=== PATIENT | male | born 1945 | race Caucasian/White ===

== ENCOUNTER 2022-05-18 10:45 | Outpatient (RCR) | payer MEDICARE, SELFPAY ==
--- NOTE | 2022-05-11 11:42 | PT.OPEX ---
PT [facility] Outpatient Eval PT [facility] Outpatient Eval Start: 05/11/22 09:38 Freq: Status: Active Protocol: Document 05/11/22 10:45 MBB (Rec: 05/11/22 11:41 MBB [id number]) E-signed By Susanne Santos DPT Physical Therapy Outpatient Evaluation Insurance Information Recert Due Date 08/03/22 Insurance Name Medicare B Medical Diagnosis trapezius muscle strain Treating Diagnosis cervicogenic headache; upper cervical joint irritation; impaired posture Referring MD [place] Subjective Subjective Bilateral neck pain, shoulder pain and headaches for about 2 weeks. Pain has been severe. Extra strength Tylenol is keeping the headaches. Pulled some weeks yesterday and was in severe pain in shoulders last night. Neck is stiff noted when turning for driving . Wakes in the morning with headache. Heat and ice have helped. PMH: cardiac stents, [place] 2019; OA PLOF: able to do whatever he wants without any pain Pain Comments can be 10/10 Objective Range of Motion severely limited neck rotation and sidebend Palpation Tender suboccipitals. No tenderness trapezius. Upper cervical joint hypomobility and irritation Posture severely impaired thoracic kyphosis with forward head and shoulders; mobile as he's able to correct Assessment/Impression 77 yo with insideous onset of neck pain, shoulder pain and headache 2 weeks ago. Signs and symptoms suggest cervicogenic headache with upper cervical joint irritation and impaired posture contributing to continued tension and tightness. He will benefit from skilled PT to address joint and soft tissue mobility limitations, improve neck ROM , improve posture and resolve pain to allow him to return to prior level of function. Primary Functional Limitations sleep; ADLs; weeding; stacking wood Plan of Care Rehabilitation Potential Good Physical Therapy Goals By 08/03/22 patient will... 1) Report 100% resolution of headache allowing him to sleep without disruption. 2) Pull weeds and do other yardwork without shoulder and neck pain flaring. 3) Chop and stack wood without pain flare. Coordination/Communication With Referral Source Treatment Plan/Direct Interventions Joint Mobilization,Manual Therapy,Therapeutic Exercises Frequency/Duration 1 x per week for 6-8 weeks then prn for 4 weeks Patient Will Be Discharged From Therapy Completion of LTG(s),Skills Plateau,Independent w/HEP, Independently Progressing Certification Information Signature of provider indicates agreement with plan of care and medical necessity of physical therapy services. Initial Certification Date 05/11/22 Ending Certification Date 08/03/22 Providers NPI#:
== END 2022-06-02 14:12 | disposition home or self-care (01) ==
PROVIDERS: PCP Internal Medicine; Visit Provider Internal Medicine
DX: R51.9 Headache, unspecified (principal); M54.2 Cervicalgia; Z51.89 Encounter for other specified aftercare
CPT/HCPCS: 97110; 97140; 97161

== ENCOUNTER 2022-05-27 14:27 | Outpatient (CLI) | payer MEDICARE, SELFPAY ==
--- NOTE | 2022-05-27 14:30 | CRLHL7_ITS ---
For Patients: As a result of the Century Cures Act, medical imaging exams and procedure reports are released immediately into your electronic medical record. You may view this report before your referring provider. If you have questions, please contact your health care provider. Indication: Cervical radiculopathy Technique: Noncontrast sagittal T1, T2, STIR and axial GRE sequences are provided. Comparison: No prior studies available for comparison at this institution. Findings: Reverse S-shaped curvature of the cervical thoracic spine. Exaggerated cervical lordosis. Grade 1 anterolisthesis at C5-6, grade 1 retrolisthesis at C6-7. Mild vertebral height loss at C6 and C7, likely on a chronic-degenerative basis. No evidence of acute fracture. No suspicious bony edema. Bony ankylosis across the bilateral C3-4 facet joints. Included posterior fossa structures are unremarkable. Visualized spinal cord appears normal in course, caliber, and intrinsic signal. Regional soft tissues are unremarkable. C2-3: Facet arthropathy. Mild bilateral foraminal narrowing. No spinal canal stenosis. C3-4: Uncovertebral/facet arthropathy. No significant foraminal spinal canal stenosis. C4-5: Anterolisthesis, uncovertebral/facet arthropathy. Moderate-severe bilateral foraminal stenosis. Mild spinal canal narrowing. C5-6: Disc-osteophyte complex, uncovertebral/facet arthropathy. Mild right, moderate-severe left neural foraminal stenosis. Moderate spinal canal stenosis. C6-7: Disc-osteophyte complex, uncovertebral/facet arthropathy. Eubz-ve-rlfrlrer bilateral foraminal narrowing. Moderate spinal canal stenosis. C7-T1: No evidence of significant foraminal spinal canal stenosis. Impression: 1. No evidence of acute osseous abnormality. 2. Cervical spondylosis, with reverse S-shaped cervical thoracic scoliosis, and degenerative ankylosis of the bilateral C3-4 facet joints. 3. At C4-5, moderate-severe bilateral foraminal stenosis. 4. At C5-6, moderate spinal canal stenosis, and moderate-severe left foraminal stenosis. 5. At C6-7, moderate spinal canal stenosis, and mild-moderate bilateral foraminal narrowing. Dictated by Venus Mckeon MD @ 05/27/2022 4:34:57 PM (Electronically Signed)
== END 2022-05-27 14:28 | disposition home or self-care (01) ==
LOC: MRI 14:28
PROVIDERS: PCP Internal Medicine; Visit Provider Physician Assistant Surgical
DX: M54.10 Radiculopathy, site unspecified (principal); M47.812 Spondylosis without myelopathy or radiculopathy, cervical region; M48.02 Spinal stenosis, cervical region
CPT/HCPCS: 72141

== ENCOUNTER 2023-01-09 09:20 | Outpatient (CLI) | payer MEDICARE, SELFPAY | END 2023-01-09 09:21 | disposition home or self-care (01) | LOC: NFLDREF 01-10 10:07 | PROVIDERS: PCP Internal Medicine; Referring Provider Internal Medicine; Visit Provider Internal Medicine | DX: E78.5 Hyperlipidemia, unspecified (principal); I10 Essential (primary) hypertension; M10.9 Gout, unspecified; Z12.5 Encounter for screening for malignant neoplasm of prostate | CPT/HCPCS: 80053; 80061; 84153 ==

== ENCOUNTER 2023-05-17 13:45 | Outpatient (RCR) | payer MEDICARE, SELFPAY ==
--- NOTE | 2023-03-29 07:54 | PT.OPEX ---
PT [place] Outpatient Eval PT [facility] Outpatient Eval Start: 03/28/23 08:04 Freq: Status: Active Protocol: Document 03/28/23 08:05 KALLI (Rec: 03/28/23 16:30 KALLI [id number]) E-signed By Viola Sadler, PT Physical Therapy Outpatient Evaluation Insurance Information Recert Due Date 06/22/23 Insurance Name Other; See Comments Insurance Information/Comments Blue medicare PPO Medical Diagnosis Spondylosis without myelopathy or radiculopathy, cervical region Treating Diagnosis Neck pain, limited neck mobility, DNF and periscapular weakness, gross UE weakness B Referring Humberto Mclain Subjective Subjective Arlon reports to PT with chronic neck pain. 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 He had both arms outstretched and felt a pop. Unsure at the time if it was in his neck or shoulders. He has been limited with mobility in neck and shoulders as well as lifting ever since . He has since seen PCP and ortho specialist as well as PT in the past. Main thing that has helped alleviate his pain is taking prednisone. He has also had an epidural injection into his cervical spine 06/30 without much relief. He does also note pain in left shoulder following a slip and fall off a step in October. He was holding on to grab bar with his left arm and felt a pull in his left shoulder. Pain currently is throughout neck, down B shoulders and mid way through upper arm. This limits his ability to perform any yardwork, reaching overhead (L worse than R). Does also note some pain relief following laying on his back with his head off the mattress pad (found himself laying like this one night). Pain returned following sleeping in normal position. PMH: cardiac stents Imagin. No evidence of acute osseous abnormality. 2. Cervical spondylosis, with reverse S-shaped cervical thoracic scoliosis, and degenerative ankylosis of the bilateral C3-4 facet joints. 3. At C4-5, moderate-severe bilateral foraminal stenosis. 4. At C5-6, moderate spinal canal stenosis, and moderate- severe left foraminal stenosis. 5. At C6-7, moderate spinal canal stenosis, and mild- moderate bilateral foraminal narrowing. Pain Comments 10/10 worst Date of Last Physician Visit 03/14/23 Current Work Status Retired Precautions Therapy Limitations/Systems Review Not Limited Objective Other/Pertinent Objective Cervical ROM: -Flx: 45 -Ext: 34 with previously reported symptoms of lightheadedness -R Rot: 54 -L Rot: 57 -R Sidebend: 19 -L Sidebend: 19 DNF strength: unable to lift and hold Only able to tolerate supine elevated 30 deg Posture: significant kyphosis and forward head Shoulder AROM: R/L -flexion 154/87 -scaption 158/92 -ER0 70/70 -Functional IR L3/sacrum Shoulder MMT: R/L -flexion 4/3 -scaption 4/3 -ER0 4-/4- Distraction: + pain relief Hypomobility throughout cervical spine TTP/increased tone R>L UT/ levator Functional Test Performed & Score NDI: 14, 28% Assessment Assessment/Impression Patient is an 78 year old male presenting to physical therapy for evaluation and treatment of chronic neck pain . Patient presents with significant thoracic kyphosis, neck pain, limited neck mobility, DNF and periscapular weakness, gross UE weakness B (secondary to probable RC tear from recent fall in November 2022). These impairments are limiting the patients ability to reach overhead, sleep, lift household objects/perform yardwork, look over shoulders, look up at top shelf. Patient appears motivated to participate in PT and presents with good prognosis to improve mobility, strength, proprioception and return to functional activities with skilled physical therapy intervention. Primary Functional Limitations reach overhead, sleep, lift household objects/perform yardwork, look over shoulders, look up at top shelf Plan of Care Rehabilitation Potential Good Physical Therapy Goals In 6 weeks (05/09/23) Pt will report 25-50% improvement in neck symptoms Pt will demonstrate improved sitting posture without cueing in consecutive sessions in order to decrease strain on neck In 12 weeks (06/20/23) Pt will exhibit 10% improvement (or 5 points) in NDI Outcome measure to demonstrate functional improvement and progress towards goals. Pt will be able to return to yardwork including chopping and stacking wood with <2/10 pain Pt will report 50-75% improvement in neck symptoms in order to return to ADLs with minimal flare up Treatment Plan/Direct Interventions Ice/Cold/Vasopneumatic,Joint Mobilization,Manual Therapy, Neuromuscular Re-ed,Self-Care/ Home Management,Therapeutic Activities,Therapeutic Exercises,Traction (Mechanical ),Ultrasound Frequency/Duration 1x/wk for 6 weeks with additional 4 sessions prn based on progress Patient Will Be Discharged From Therapy Completion of LTG(s), Independent w/HEP, Independently Progressing Evaluation Billing Untimed Code Treatment Minutes 26 Complexity Low Certification Information Initial Certification Date 03/28/23 Ending Certification Date 06/22/23 Provider Signature Shows Agreement With POC & Medical Necessity Physician Signature & Date Requested Please Sign/Date Here Physician Comment/Change : Physician NPI Number #
== END 2023-08-07 15:30 | disposition home or self-care (01) ==
PROVIDERS: PCP Internal Medicine; Visit Provider Internal Medicine
DX: M47.812 Spondylosis without myelopathy or radiculopathy, cervical region (principal); M54.2 Cervicalgia; Z74.09 Other reduced mobility; R53.1 Weakness; Z51.89 Encounter for other specified aftercare
CPT/HCPCS: 97110; 97140; 97161

== ENCOUNTER 2023-06-29 09:20 | Outpatient (CLI) | payer MEDICARE, SELFPAY ==
--- OUTSIDE RECORDS SUMMARY | 2023-07-03 13:12 | XMS_ITS | Continuity of Care Document ---
Author Name Unknown Organization [facility] Address [address] [place] [address] Phone Care Team Providers Care Service Crew Supervisor Name Role Phone Frandy CADE, [place] Unavailable Unavailable Allergies, Adverse Reactions, Alerts Substance Reaction Status Criticality No Known Allergies Active No Inform ation Medications Medication Instructions Dosage Effective Dates (start - stop) Status Comments ATORVASTATIN CALCIUM (unknown strength) Not Available - Active ASPIRIN EC (unknown strength) Not Available - Active ISOSORBIDE MONONITRATE (unknown strength) Not Available - Active LISINOPRIL (unknown strength) Not Available - Active TURMERIC (unknown strength) Not Available - Active Procedures Procedure Date Office/Outpatient Visit,New, Mod 2022 Office/Outpatient Visit,[facility] 2022 Advance Directives Directive Yes / No Effective Date File Name No Information Encounters Encounter Description Practice Location Reason(s) For Visit Diagnoses Date Provider Providers Copied on Encounter Office/Outpat ient Visit,New, Mod [facility], [address], [place], [place], [id number], [place] tel:[phone] [facility] No Information Frandy Ramirez [facility], [address], [place], [place], [id number] , [place]. tel:[phone] Referring Provider: Scout Nicole [facility] Physician-D o Not Fax, [place], [address]. tel:[phone] Family History Family Member Type Diagnosis Age At Onset No Information Payers Payer name Insurance type Covered republican ID Authoriza tion(s) BCBS [id number] Medicare Martha DEMARCO [id number] 1 Social History Type Description Quantity Date Captured Comments Alcohol Use Details Unknown Caffeine Use Details Unknown Tobacco Use Status Ex-smoker Smoking Status Former smoker Non-Smoking Tobacco Use Details Chewing: No Details Available Chewing: No Details Available Sex Male Vital Signs Date / Time: Height Weight BMI Pulse Rate Blood Pressure Temperature Respiratory Rate Body Surface Area Head Circumference Head Circ. Percentile Wt./Sunil. Percentile BMI percentile Pulse Ox Inhaled Ox 10:07 AM 63.50 in 66.678 kg (147.00 lbs) 25.6 3 kg/m eter (2) Chief Complaint And Reason For Visit No Information Reason For Referral Reason For Referral No Information History Of Present Illness Encounter Date Complaint History Of Prese nt Illness No Information Functional Status Date Functional Assessmen t No Information Instructions Date Instruction Additional Infor mation No Information Assessments Type Assessment Date No Information Patient Care Teams Name Effective Dates (start - stop) Status Members No Information
== END 2023-06-29 09:21 | disposition home or self-care (01) ==
LOC: NFLDREF 07-03 13:10
PROVIDERS: PCP Internal Medicine Cardiovascular Disease; Referring Provider Internal Medicine; Visit Provider Internal Medicine
DX: I35.0 Nonrheumatic aortic (valve) stenosis (principal); I10 Essential (primary) hypertension; E78.5 Hyperlipidemia, unspecified; I25.10 Atherosclerotic heart disease of native coronary artery without angina pectoris; Z95.5 Presence of coronary angioplasty implant and graft; Z13.29 Encounter for screening for other suspected endocrine disorder
CPT/HCPCS: 84443

== ENCOUNTER 2023-07-07 09:52 | Outpatient (CLI) | payer MEDICARE, SELFPAY | END 2023-07-07 09:53 | disposition home or self-care (01) | LOC: RAD 09:52 | PROVIDERS: PCP Internal Medicine; Visit Provider Internal Medicine Cardiovascular Disease | DX: I25.10 Atherosclerotic heart disease of native coronary artery without angina pectoris (principal); I51.7 Cardiomegaly; I35.2 Nonrheumatic aortic (valve) stenosis with insufficiency | CPT/HCPCS: 93306 ==

== ENCOUNTER 2024-01-05 12:09 | Outpatient (CLI) | payer MEDICARE, SELFPAY | END 2024-01-05 12:10 | disposition home or self-care (01) | PROVIDERS: PCP Internal Medicine; Visit Provider Nurse Practitioner Family | DX: I10 Essential (primary) hypertension (principal); M10.9 Gout, unspecified; M25.562 Pain in left knee; M87.052 Idiopathic aseptic necrosis of left femur | CPT/HCPCS: 80053; 84550; 85651; 86140 ==

== ENCOUNTER 2024-01-12 09:01 | Outpatient (CLI) | payer MEDICARE, SELFPAY ==
--- NOTE | 2024-01-12 09:15 | MR_ITS ---
[address] [address] Phone:?[phone] Fax:?[phone] Referring Physician Information: Tila Johnson [address] [facility] [address] Phone:?[phone] Fax:?[phone] Patient:Austin Raines D.O.B:?1945 Sex:?Male Phone:?[phone] [facility] MRN:?[id number] Exam Date:?01/12/2024 EXAM: MRI of the LEFT KNEE, without contrast CLINICAL: Evaluate for medial femoral condyle avascular necrosis. COMPARISONS: X-rays dated 01/09/2024. TECHNICAL: Multiplanar multisequence MRI of the left knee was obtained. SEDATION: None. CONTRAST: None. FINDINGS: Ligaments: ACL: There is marked mucoid degeneration/sequelae of prior sprain injury involving the ACL. PCL: There is marked mucoid degeneration/sequelae of prior sprain injury involving the PCL. MCL: Irregularity of the proximal ligament consistent with sequelae of prior sprain injuries. There is marked synovitis adjacent to the proximal MCL. LCL: There is increased soft tissue edema about the LCL, without evidence of ligament disruption. Posterolateral corner: Popliteus tendon, biceps femoris, iliotibial band, and the popliteofibular ligament appear intact. There is increased soft tissue edema about the distal iliotibial band. Posteromedial corner: Semimembranosus, pes anserine tendons and posterior oblique ligament appear intact. Extensor mechanism: Patellar tendon: There is minimal partial interstitial tearing of the distal patellar tendon at the tibial tubercle attachment. There is also minimal partial tearing of the medial proximal patellar tendon on axial series 4 images 18-21. Quadriceps tendon: Intact, without tendinopathy. Retinacula: There is increased soft tissue edema about the medial and lateral patellar retinaculum, without evidence of disruption. Patellofemoral joint: Patella: Grade 2 chondral thinning is seen to involve the patella. Trochlea: Suspected ill-defined grade 2-3 chondral thinning involving the central and medial trochlea. Medial compartment: Medial meniscus: There is complex tearing throughout the posterior horn and posterior root, with complex tearing also seen throughout the body segment extending into the anterior horn as seen on sagittal series 6 image 7-15 and coronal series 8 image 12-21. Approximately 4 to 5 mm of medial extrusion of torn body segment meniscal tissue into the medial gutter. Medial cartilage: There is high-grade and full-thickness chondral loss seen to involve the medial femoral condyle and medial tibial plateau. Subchondral fracture is seen to involve the weightbearing medial femoral condyle with adjacent bone marrow edema and small adjacent cystic change. There is mild subchondral marrow edema/cystic change involving the peripheral medial tibial plateau. Lateral compartment: Lateral meniscus: There is complex tearing throughout the anterior horn extending into the anterior root and into the junction with the body segment. Ill-defined degenerative fraying/tearing involves the posterior root on sagittal series 6 images 17-19. Lateral cartilage: Small segment of high-grade chondral loss involves the junction of the posterior weightbearing and nonweightbearing lateral femoral condyle on sagittal series 6 image 21-22. High-grade chondral loss also involves the posterior lateral tibial plateau adjacent to the posterior horn lateral meniscus. Knee joint: Effusion: Moderate sized joint effusion is present with synovitis and with small intermixed intra-articular bodies also considered. Marked synovitis is seen along the peripheral and posterior aspects of the medial femoral condyle adjacent to the MCL measuring approximately 4 cm in AP dimension, 3 cm in transverse dimension and 4.5 cm in craniocaudal dimension. Marked synovitis is also seen along the periphery of the posterior medial tibial plateau. There is synovitis and possibly small bodies seen within the popliteal recess. Popliteal cyst: Moderate sized with internal synovitis/bodies noted. Bones: Subchondral fracture involves the weightbearing medial femoral condyle as above. Osseous cystic change is seen to involve the central aspect of the medial and lateral femoral condyles adjacent to the intercondylar notch. Osseous cystic changes are also seen to involve the central tibial plateau. There is scattered edema involving the subcutaneous soft tissues of the knee, nonspecific. IMPRESSION: 1. Subchondral fracture involving the weightbearing medial femoral condyle with adjacent marrow edema/small cystic changes. 2. Tearing of the medial and lateral menisci as above, with extrusion of torn body segment medial meniscal tissue into the medial gutter. 3. Marked mucoid degeneration versus sequelae of prior sprain injuries involving the ACL and PCL. Irregularity of the proximal MCL also suggesting sequelae of prior sprain injury. There is soft tissue edema about the LCL, which otherwise appears intact. 4. Tricompartmental chondromalacia/chondral loss as above. 5. Moderate-sized joint effusion with synovitis and with small intra-articular bodies also considered. There is marked synovitis along the peripheral and posterior medial tibial plateau including adjacent to the MCL with marked synovitis also noted along the peripheral posterior medial tibial plateau. 6. Moderate sized complex popliteal cyst with internal synovitis/bodies. JCZ Electronically signed on 01/12/2024 12:29:00 PM by Russel Verma D.O.
== END 2024-01-12 09:02 | disposition home or self-care (01) ==
LOC: MRI 09:01
PROVIDERS: PCP Internal Medicine; Visit Provider Physician Assistant Surgical
DX: M25.562 Pain in left knee (principal); S72.432A Displaced fracture of medial condyle of left femur, initial encounter for closed fracture; S83.242A Other tear of medial meniscus, current injury, left knee, initial encounter; S83.282A Other tear of lateral meniscus, current injury, left knee, initial encounter; M94.262 Chondromalacia, left knee; M25.462 Effusion, left knee; S82.143A Displaced bicondylar fracture of unspecified tibia, initial encounter for closed fracture; M71.22 Synovial cyst of popliteal space [Baker], left knee
CPT/HCPCS: 73721

== ENCOUNTER 2024-03-29 13:45 | Outpatient (RCR) | payer MEDICARE, SELFPAY ==
--- NOTE | 2024-03-12 17:19 | PT.OPEX ---
PT [facility] Outpatient Eval PT [facility] Outpatient Eval Start: 03/12/24 15:07 Freq: Status: Active Protocol: Document 03/12/24 16:33 ELMO (Rec: 03/12/24 17:15 ELMO [id number]) E-signed By Katie Willis DPT Physical Therapy Outpatient Evaluation Insurance Information Recert Due Date 06/10/24 Insurance Name Medicare B Medical Diagnosis subchondral insufficiency fracture of condyle L femur L knee OA, synovitis, tenosynovitis Treating Diagnosis L knee pain, impaired L knee ROM Subjective Subjective Patient reports onset of severe L knee pain about 2 1/2 months ago. States he couldn 't stand or walk so his family took him to Urgent Care in a wheelchair. States he had an MRI but that was a wasted MRI as they still weren't able to find the reason for his severe pain. He denies any recent falls, injury, trauma. States that he uses a cane on occasion. He stays active at home, working out in the yard , driving the skidloader, riding mower. He uses a knee sleeve as needed on bilateral knees due to chronic bilateral knee OA, pain issues. He feels he has recovered from what was causing his severe pain but c/o some ongoing tightness, stiffness in his L knee. He is hoping to be able to work on some exercises at home as he tends to stay quite active and doesn't think he will need too many visits. He reports being on prednisone regularly for his chronic UBN pain. He is using tylenol OA for all his general aches and pains. Main c/o L knee tightness, stiffness. Pain range 0-3/10. Date of Last Physician Visit 02/13/24 Current Work Status Retired Assessment Assessment/Impression Patient is an 79 year old male with L knee pain, impaired L knee ROM. Per MD order and note, patient now referred to PT after healing of a subchondral insufficiency fracture of his L femoral condyle. Patient is amb without an AD. Gait is steady , symmetrical, with step through gait pattern. Patient with impaired posture with forward flexed, kyphotic trunk . He denies L knee pain this session, reports some mild soreness at times after being active but states the pain has been minimal to none. Pain range 0-3/10. Patient's main c/o L knee tightness, stiffness. L knee ROM 0-0-115 degrees. R knee ROM 0-0-135 degrees. L quad/HS strength are WFL and equal to R LE. Patient is hoping to get some home exercises to perform to help with his ROM. Able to initiate some exercises this session. Tolerated well and patient reports less tightness , stiffness post session - feeling pretty good. Patient would benefit from skilled PT for pain/sx management, improved L knee ROM, return to his full daily activities, and establishment of HEP. Plan of Care Rehabilitation Potential Good Physical Therapy Goals 1. Decrease/maintain L knee pain at less than/equal to 3/ 10 with daily activities and with the progression of PT activities over the next 4-6 weeks. 2. Improve L knee ROM to 0- 120 degrees or greater over the next 6-8 weeks for return to functional knee ROM and improved gait mechanics. 3. Improve L knee/LE mobility /strength over the next 6-8 weeks for return to transfers with ease, return to extended standing/ walking for ADLs/household activities, and for improved gait mechanics with/without AD. 4. Patient will be I with HEP within 8 weeks for progression toward above goals, ongoing self-management of pain/swelling, ongoing self improvements in L knee ROM/strength and for return to normal daily activities without flare up of L knee pain. Coordination/Communication With Referral Source Treatment Plan/Direct Interventions Manual Therapy,Therapeutic Exercises Frequency/Duration 1x/week Patient Will Be Discharged From Therapy Completion of LTG(s),Skills Plateau,Independent w/HEP, Independently Progressing Evaluation Billing Untimed Code Treatment Minutes 24 Complexity Low Certification Information Initial Certification Date 03/12/24 Ending Certification Date 06/10/24 Provider Signature Required Yes Provider Signature Shows Agreement With POC & Medical Necessity Physician NPI Number Write NPI# Here Physician Comment/Change : Physician Signature & Date Requested Please Sign/Date Here
== END 2024-07-27 23:59 | disposition home or self-care (01) ==
PROVIDERS: PCP Internal Medicine; Visit Provider Physician Assistant Surgical
DX: M84.452A Pathological fracture, left femur, initial encounter for fracture (principal); M17.12 Unilateral primary osteoarthritis, left knee; M65.9 Synovitis and tenosynovitis, unspecified; Z51.89 Encounter for other specified aftercare; M25.562 Pain in left knee; Z74.09 Other reduced mobility
CPT/HCPCS: 97110; 97161

== ENCOUNTER 2024-10-21 10:43 | Outpatient (CLI) | payer MEDICARE, SELFPAY | END 2024-10-21 10:44 | disposition home or self-care (01) | LOC: NFLDREF 10-28 23:50 | PROVIDERS: PCP Internal Medicine; Referring Provider Internal Medicine; Visit Provider Internal Medicine | DX: E78.5 Hyperlipidemia, unspecified (principal); I10 Essential (primary) hypertension; Z12.5 Encounter for screening for malignant neoplasm of prostate | CPT/HCPCS: 80053; 80061; G0103 ==

== ENCOUNTER 2025-07-18 16:34 | Outpatient (CLI) | payer MEDICARE, SELFPAY ==
--- NOTE | 2025-07-18 16:45 | CRLHL7_ITS ---
For Patients: As a result of the Century Cures Act, medical imaging exams and procedure reports are released immediately into your electronic medical record. You may view this report before your referring provider. If you have questions, please contact your health care provider. INDICATION: Hearing loss. TECHNIQUE: CT of the temporal bones without contrast. Coronal and axial small field of view reconstructions of both temporal bones are included. COMPARISON: None. FINDINGS: Right temporal bone: Postoperative changes: None. External auditory canal: Within normal limits. Middle ear cleft: Complete opacification of the right middle ear cleft. Inner ear: Within normal limits. Mastoid air cells: Complete opacification of the right-sided mastoid air cells. No air cell coalescence. Vestibular aqueduct, carotid canal and jugular foramen: Within normal limits. Petrous apex: Within normal limits. Left temporal bone: Postoperative changes: None. External auditory canal: Within normal limits. Middle ear cleft: Within normal limits. Inner ear: Within normal limits. Mastoid air cells: Scattered opacification a few mastoid air cells. Vestibular aqueduct, carotid canal and jugular foramen: Within normal limits. Petrous apex: Within normal limits. Imaged orbits and intracranial structures: Scattered white matter hypoattenuation, typical for chronic microvascular ischemic change. [id number] generalized parenchymal volume loss. Orbital contents are normal in appearance. Imaged paranasal sinuses and facial structures: Mild ethmoid air cell mucosal thickening. The paranasal sinuses are otherwise clear. IMPRESSION: 1. Right middle ear cleft/mastoid opacification without destructive osseous change. Most likely this represents sequela of otomastoiditis. 2. No significant left temporal bone abnormalities. Please note that all CT scans at this facility use dose modulation, iterative reconstruction, and/or weight-based dosing when appropriate to reduce radiation dose to as low as reasonably achievable. Dictated by Tao Brewster MD @ 07/21/2025 12:16:39 PM (Electronically Signed)
== END 2025-07-18 16:35 | disposition home or self-care (01) ==
LOC: CT 16:34
PROVIDERS: PCP Internal Medicine; Visit Provider Physician Assistant
DX: H91.8X3 Other specified hearing loss, bilateral (principal)
CPT/HCPCS: 70480